=== PATIENT | male | born 1965 | race Caucasian/White ===

== ENCOUNTER 2023-07-17 09:27 | Inpatient (IN) | payer OTHER, SELFPAY ==
--- NOTE | ~2023-07-17 | US_ITS ---
EXAMINATION: US abdomen limited DATE: 07/17/2023 10:41 INDICATION: Abdominal pain TECHNIQUE: Multiple grayscale and Doppler ultrasound images of the abdomen were obtained. COMPARISON: None FINDINGS: The pancreatic head and body are normal in appearance. The pancreatic tail is not visualized. Liver has normal echogenicity and contour, with a smooth surface. No liver lesion identified. No intrahepat ic biliary duct dilation suspected. Portal venous flow was seen in the hepatopetal, normal direction and has normal Doppler waveform. The visualized proximal inferior vena cava is normal. The gallbladd er is filled with hypoechoic material with scattered echogenic foci with ringdown artifact suggesting cholesterol crystals. No gallbladder dilation or wall thickening. No shadowing cholelithiasis. The c ommon bile duct measures 5 mm diameter which is normal. Sonographic Alex sign was reported as posit ahsan by the process planner. IMPRESSION: 1. Normal nondilated gallbladder which is filled with hypoechoic and punctate echogenic material like ly representing sludge with cholesterol crystals. 2. Positive sonographic Alex sign but without evident gallbladder dilation, wall thickening or shad owing cholelithiasis to more specifically suggest acute cholecystitis. There is continued clinical co ncern for acute cholecystitis could consider HIDA scan for further evaluation. Reviewed, dictated and finalized at location A. IMPRESSION: 1. Normal nondilated gallbladder which is filled with hypoechoic and punctate e chogenic material likely representing sludge with cholesterol crystals. 2. Positive sonographic Alex sign but without evident gallbladder dilation, w all thickening or shadowing cholelithiasis to more specifically suggest acute c holecystitis. There is continued clinical concern for acute cholecystitis could consider HIDA scan for further evaluation.
--- NOTE | ~2023-07-17 | CT_ITS ---
Non-contrast CT scan of the Abdomen and Pelvis Clinical indication: Abdominal pain Technique: 2.5 mm axial scans were obtained through the abdomen and pelvis without intravenous or or al contrast. Dose reduction technique was used on this scan by utilizing automated exposure control a nd iterative reconstruction technique. The dose-length product (DLP) was 783.60 mGy-cm. Findings: Images through the lung bases reveal no abnormalities. There is no evidence of renal or ureteral calculi. The kidneys and the ureters are nondilated. The liver, spleen, pancreas, and adrenals appear normal. Probable gallbladder sludge. There is no aor tic aneurysm. There is no evidence of bowel obstruction. Images through the pelvis were performed. There is no evidence of ascites or lymphadenopathy. Urinary bladder unremarkable. No pelvic mass seen. Small bilateral fat-containing hernias are present. Impression: Small bilateral fat-containing inguinal hernias, left larger than right. Probable diffuse gallbladder sludge. Reviewed, dictated and finalized at [facility]. Impression: Small bilateral fat-containing inguinal hernias, left larger than right. Probable diffuse gallbladder sludge.
--- NOTE | ~2023-07-17 | MR_ITS ---
EXAMINATION: MR MRCP wo/w con/w 3D wo ind DATE: 07/18/2023 09:49 INDICATION: Gallbladder sludge. Right upper quadrant abdominal pain. Nausea and vomiting. TECHNIQUE: Magnetic resonance imaging (MRI) of the abdomen was performed without and with 18 mL Multi Norman intravenous contrast. Sequences included coronal T2-weighted FS FSE, coronal T2-weighted FSE, a xial T1-weighted LAVA, coronal FS FIESTA, axial dual-echo T1-weighted SPGR, coronal lava-FLEX, sagitt al T2-weighted FSE, axial T2-weighted FSE, and axial DWI. Thick-slab T2-weighted FSE images were obta ined for magnetic resonance cholangiopancreatography (MRCP). Maximum intensity projection 3-D reconst ructions of the volumetric data were created by the technologist. Postcontrast sequences included cor onal LAVA-flex and time course of axial T1-weighted LAVA. COMPARISON: CT abdomen and pelvis 07/17/2023 FINDINGS: ABDOMEN MRI: There are partially 4 enhancing masses in the liver measuring up to 15 mm. The gallbladd er is distended. There is edema around the gallbladder. The spleen, pancreas, adrenal glands, and kid neys are normal. There are no dilated loops of bowel. There are no pathologically enlarged lymph node s. There is no free intraperitoneal fluid. ABDOMEN MRCP: The common duct measures 4 mm. No choledocholithiasis. IMPRESSION: 1. Distended gallbladder with gallbladder wall thickening and surrounding edema, consistent with acut e cholecystitis. 2. Liver masses measuring up to 15 mm, consistent with metastatic disease. Reviewed, dictated and finalized at location E. IMPRESSION: 1. Distended gallbladder with gallbladder wall thickening and surrounding edema , consistent with acute cholecystitis. 2. Liver masses measuring up to 15 mm, consistent with metastatic disease.
[2023-07-17 09:39] VITALS: BP 161/90; PULSE 70; RESP 16; TEMP 36.4; O2SAT 99
--- NOTE | 2023-07-17 09:41 | PC.NURSE ---
Triage assessment taken form pt c/o upon speaking with this atg java developer. Pt refusing to relate any information to triage nurse. States I don't see why I have to repeat it
--- NOTE | 2023-07-17 09:52 | ECG_ITS ---
SEE SCANNED COPY FOR CONFIRMED REPORT MTDD
--- NOTE | 2023-07-17 09:52 | ED.ABDPAIN ---
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 He states that the pain will come up around 1:00 a.m. this morning, feels like a sharp and burning sensation in the right upper quadrant, associated with significant nausea and multiple episodes of vomiting. He does note that he had similar symptoms in the past, went to an outside hospital where they told him he was having a gallbladder attack and prescribed him with Toradol. He did attempt to take 2 doses of Toradol this morning, the 1st of which was at 3:00 a.m. which he vomited up in the 2nd of which was at 4:00 a.m. which he was able to keep down. Last p.o. intake was around 3:00 a.m. this morning. He denies chest pain or shortness of breath. He does endorse some associated bilateral lower back pain which is nonradiating in nature. Denies any trauma. No history of HTN, only other medication he is on is sertraline. Related Data Home Medications Medication Instructions Recorded Confirmed dicyclomine 10 mg capsule 10 mg PO DAILY 07/17/23 07/17/23 sertraline 100 mg tablet 100 mg POST-TRANSFUSION 07/17/23 07/17/23 Allergies Allergy/AdvReac Type Severity Reaction Status Date / Time Iodinated Contrast Media Allergy Hives Verified 07/17/23 09:28 Review of Systems Review of Systems: All systems reviewed & are unremarkable except as noted in HPI and below PMFSH Social History Social History Smoking status: Never smoker Do You Feel Safe in your Home?: Yes Lack of Transportation: No Lack of Food: Never True Current Housing: I Have Housing Concerned About Future Housing: No Difficulty Paying Gas/Electric Bills: No Difficulty Paying for Meds: No Currently Unemployed: No Education: Decline to Answer Difficulty w/ Childcare or Family Care: No Spiritual care concerns: No Exam Narrative: GENERAL: Well-appearing, well-nourished, and in no acute distress. HEAD: Normocephalic, atraumatic. EYES: PERRLA and EOMI. ENT: Nares clear. Mucous membranes moist. NECK: Supple. CHEST: Clear to auscultation. No respiratory distress. HEART: Regular rate and rhythm. Normal peripheral pulses. ABDOMEN: Soft, Right upper quadrant tenderness without rebound or guarding. EXTREMITIES: Normal range of motion. No edema. SKIN: Warm, dry, no rash. NEURO: No focal deficits. Alert and oriented x3. PSYCH: Normal mood and affect. Course Course Emergency Course: Chart review performed. Here with concern for gallbladder attack. Triage vitals show HTN, otherwise normal. Patient seen evaluated, does appear to be in pain. Fairly complex surgical and medical history most of which was performed at [facility]. Lab work reviewed, CBC grossly normal, electrolytes within normal limits. Elevation of his bilirubin to 2.1, AST 184, ALT 129. We have no prior for comparison in our system. Troponin negative, lipase normal. In addition to ultrasound will add on CT abdomen and pelvis. Patient agreeable to workup the plan. Imaging reviewed, ultrasound shows normal nondilated gallbladder with punctate echogenic crystals with a positive sonographic Alex sign. No associated signs of acute cholecystitis. CT shows probable diffuse gallbladder sludge. Will re-evaluate. Continued pain. Discussed case with Dr. Stapleton who is okay with keeping patient here, will require an MRCP. I did speak with patient's oncology team over at the [facility], they note that they are okay with him staying here at our hospital as they do not have any upcoming procedures or workup planned on their end. Spoke with dylan
[2023-07-17 10:58] LABS: Basophils Percent Auto 0.3 % (0.2-1.2); Eosinophils Percent Auto 0.1 % (0-4.4); Hematocrit 44.4 % (42.0-52.0); Hemoglobin 15.1 g/dL (14.0-18.0); Immature Granulocyte Absolute 0.03 K/mm3 (0.00-0.031); Immature Granulocyte Percent A 0.3 % (0-0.5); Lymphocytes Absolute Auto 0.72 K/mm3 (0.9-3.2); Lymphocytes Percent Auto 7.4 % (18.3-44.2); Mean Corpuscular Hemoglobin 30.3 pg (26-34); Mean Corpuscular Volume 89.2 fl (80-100); Mean Platelet Volume 9.3 fl (7.4-10.4); Monocytes Absolute Auto 0.4 K/mm3 (0.1-0.6); Monocytes Percent Auto 4.5 % (2.6-8.5); Neutrophils Absolute Auto 8.5 K/mm3 (1.3-6.7); Neutrophils Percent Auto 87.4 % (45.5-73.1); Platelet Count Result 222 k/mm3 (150-375); Red Blood Count 4.98 M/mm3 (4.6-6.20); Red Cell Distribution Width 12.9 % (11.5-14.5); White Blood Count 9.7 K/mm3 (4.5-10.0)
[2023-07-17 11:09] LABS: INR 0.9
[2023-07-17 11:10] LABS: Partial Thromboplastin Time 22.3 Seconds (22.3-36.8)
[2023-07-17 11:12] LABS: Lactic Acid Reflex 1.7 mmol/L (0.7-2.0)
[2023-07-17 11:13] LABS: Alanine Aminotransferase 129 U/L (6-50); Albumin Level 4.8 g/dL (3.5-5.1); Alkaline Phosphatase 175 U/L (38-126); Anion Gap 9 mmol/L (4-12); Aspartate Amino Transferase 194 U/L (17-59); Bilirubin,Total 2.1 mg/dL (0.2-1.3); Blood Urea Nitrogen 13 mg/dL (9-20); Calcium 9.6 mg/dL (8.4-10.2); Carbon Dioxide 23 mmol/L (22-30); Chloride 103 mmol/L (98-107); Estimated CRCL calculation 88 ml/min; Estimated Glomerular Filt Rate > 60; Glucose 137 mg/dL (65-110); Lipase 42 U/L (23-300); Sodium 135 mmol/L (137-145)
[2023-07-17 11:14] LABS: Appearance Urine Clear (Clear); Bilirubin Urine Negative (Negative); Blood Urine Negative (Negative); Color Urine Dark Yellow (Yellow); Glucose Urine UA Trace mg/dL (Negative); Ketones Urine 1+ mg/dL (Negative); Leukocyte Esterase Ur Negative LEU/UL (Negative); Nitrate Urine Negative (Negative); Protein Urine Negative (Negative); Specific Grav Ur 1.025 (1.001-1.035); Urobilinogen Urine 0.2 mg/dL (<2.0)
[2023-07-17 11:21] LABS: Add Urine Microscopic? NO
[2023-07-17 11:27] LABS: Troponin I < 0.012 ng/mL (0.000-0.034)
[2023-07-17] MEDS: MORPHINE SULFATE (*CRX) 4 MG/ML INJ IV PUSH ×3 (11:46→16:38)
[2023-07-17] MEDS: ONDANSETRON INJ 4 MG/2 ML VIAL IV PUSH (11:46)
[2023-07-17 14:19] VITALS: BP 176/99; PULSE 60; RESP 18; O2SAT 97
--- NOTE | 2023-07-17 15:28 | PM.CNGS ---
Assessment and Plan Assessment and plan (1) Acute on chronic cholecystitis concurrent with and due to calculus of gallbladder and bile duct: Code(s): K80.66 - Calculus of gallbladder and bile duct with acute and chronic cholecystitis without obstruction Status: Acute Assessment and Plan: was set up for MRCP, serial exams and labs, will need interval cholecystectomy (2) Metastatic carcinoid tumor: Code(s): C7B.00 - Secondary carcinoid tumors, unspecified site Status: Acute Assessment and Plan: stable, reached out to Oncology at [facility] and patient has follow-up appointment in August History of Present Illness Consult details Consult date: 07/17/23 Reason for consult: abdominal pain Requesting physician: Alma Boyle MD Narrative: The patient is a 58-year-old male presenting to the emergency department complaining of severe right upper quadrant, epigastric abdominal pain. Patient reports the pain acutely started overnight and was associated with nausea and emesis. The patient also reports bloating and poor appetite. Patient reports that he has had intermittent symptoms over the last couple of months. The patient reports the episodes seem to be increasing in severity and frequency. The patient ER a previous time and diagnosed with biliary colic. Of note, the patient has known metastatic carcinoid tumor. He follows up with Oncology at [facility]. Review of Systems Review of Systems: All systems reviewed & are unremarkable except as noted in HPI and below [facility] Comments PMH - metastatic carcinoid with mets to liver, lung PSH - ileocecectomy, liver resection SH - denies tobacco, ETOH, IVDA FH - no known biliary dz Meds Home Medications and Allergies Allergies Allergy/AdvReac Type Severity Reaction Status Date / Time Iodinated Contrast Media Allergy Hives Verified 07/17/23 09:28 Vital Signs Vital Signs - 24 hr 07/17/23 09:39 07/17/23 14:19 Temperature 36.4 C Pulse Rate 70 60 Respiratory Rate 16 18 Blood Pressure 161/90 H 176/99 H Pulse Oximetry 99 97 Oxygen Delivery Room Air Exam Const: General: cooperative, alert, awake, Physically active, tired appearing and uncomfortable HENMT: Head: normal to inspection, normocephalic and atraumatic Eyes: General: appearance normal, both eyes and all related structures Neck: Neck: normal visual inspection, full ROM and no lymphadenopathy Resp: Auscultation: clear to auscultation bilaterally Cardio: Rate: regular rate Rhythm: regular rhythm GI: Inspection: normal to inspection and distended GI Palp: Yes abdominal tenderness, Yes Soft to palpation and Yes Tenderness to palpation present (GI) Skin: General skin exam: normal color and no rashes or lesions noted Neuro: General: patient oriented x3 and CN's II-XI intact bilaterally Extrem: General: normal to inspection and full ROM Results Labs 07/17/23 10:48 07/17/23 10:48 Labs: Abnormal lab results 07/17/23 Range/Units 10:48 Neut % (Auto) 87.4 H (45.5-73.1) % Lymph % (Auto) 7.4 L (18.3-44.2) % Lymph # (Auto) 0.72 L (0.9-3.2) K/mm3 Absolute Neuts (auto) 8.5 H (1.3-6.7) K/mm3 Sodium 135 L (137-145) mmol/L Glucose 137 H (65-110) mg/dL Total Bilirubin 2.1 H (0.2-1.3) mg/dL AST 194 H (17-59) U/L ALT 129 H (6-50) U/L Alkaline Phosphatase 175 H (38-126) U/L Urine Glucose (UA) Trace H (Negative) mg/dL Urine Ketones 1+ H (Negative) mg/dL Diabetes panel 07/17/23 Range/Units 10:48 Sodium 135 L (137-145) mmol/L Potassium 4.0 (3.4-5.0) mmol/L Chloride 103 (98-107) mmol/L Carbon Dioxide 23 (22-30) mmol/L BUN 13 (9-20) mg/dL Creatinine 0.70 (0.7-1.3) mg/dL Glucose 137 H (65-110) mg/dL Calcium 9.6 (8.4-10.2) mg/dL AST 194 H (17-59) U/L ALT 129 H (6-50) U/L Alkaline Phosphatase 175 H (38-126) U/L Total Protein 8.0 (6.3-8.2) g/dL Albumin 4.8 (3.5-5.1) g/dL Calc
[2023-07-17 16:41] VITALS: BP 157/88; PULSE 62; RESP 18; O2SAT 98
[2023-07-17 17:10] VITALS: BP 159/95; PULSE 60; RESP 16; TEMP 36.3; O2SAT 95
--- NOTE | 2023-07-17 17:10 | ADMGEN ---
This patient, Axel Stauffer, was admitted to Medical Room 250-01. Patient/family oriented to hospital policies and general routines including ID bracelet, bed and alarms, visiting hours, pain management, procedures, bathroom and other care routines, personal items, smoking policy, room service/diet, and visiting hours. Information on how to activate the Rapid Response Team has been discussed. Patient/Family are encouraged to report perceived risks to care and to ask questions if they do not understand what they are told or what they should do.
[2023-07-17 17:12] VITALS: BMI 32.6
[2023-07-17 21:49] VITALS: BP 161/93; PULSE 69; RESP 12; TEMP 37; O2SAT 95
[2023-07-17] MEDS: SODIUM CHLORIDE 0.45% 1,000 ML 100 ML IV CONT (23:37)
[2023-07-17] MEDS: PIPERACILLIN/TAZ 4.5G/NS 100ML 4.5 GM/100 ML BAG IVPB (23:40)
[2023-07-17] MEDS: MORPHINE SULFATE (*CRX) 2 MG/ML INJ IV PUSH (23:41)
[2023-07-18] MEDS: predniSONE 40 MG, predniSONE 10 MG 50 MG PO (01:24)
[2023-07-18 05:14] VITALS: BP 135/93; PULSE 83; RESP 12; TEMP 36.2; O2SAT 96
[2023-07-18 05:57] LABS: Basophils Percent Auto 0.2 % (0.2-1.2); Eosinophils Percent Auto 0.1 % (0-4.4); Hematocrit 42.1 % (42.0-52.0); Hemoglobin 14.2 g/dL (14.0-18.0); Immature Granulocyte Absolute 0.03 K/mm3 (0.00-0.031); Immature Granulocyte Percent A 0.4 % (0-0.5); Lymphocytes Absolute Auto 0.87 K/mm3 (0.9-3.2); Lymphocytes Percent Auto 10.5 % (18.3-44.2); Mean Corpuscular HGB Conc 33.7 g/dl (32-36); Mean Corpuscular Hemoglobin 30.3 pg (26-34); Mean Platelet Volume 9.6 fl (7.4-10.4); Monocytes Absolute Auto 0.8 K/mm3 (0.1-0.6); Monocytes Percent Auto 9.7 % (2.6-8.5); Neutrophils Absolute Auto 6.6 K/mm3 (1.3-6.7); Neutrophils Percent Auto 79.1 % (45.5-73.1); Platelet Count Result 212 k/mm3 (150-375); Red Blood Count 4.68 M/mm3 (4.6-6.20); Red Cell Distribution Width 13.2 % (11.5-14.5); White Blood Count 8.3 K/mm3 (4.5-10.0)
[2023-07-18 06:06] LABS: Alanine Aminotransferase 419 U/L (6-50); Albumin Level 4.3 g/dL (3.5-5.1); Alkaline Phosphatase 200 U/L (38-126); Anion Gap 7 mmol/L (4-12); Aspartate Amino Transferase 533 U/L (17-59); Bilirubin,Total 6.1 mg/dL (0.2-1.3); Blood Urea Nitrogen 9 mg/dL (9-20); Calcium 8.9 mg/dL (8.4-10.2); Carbon Dioxide 25 mmol/L (22-30); Chloride 104 mmol/L (98-107); Estimated CRCL calculation 92 ml/min; Estimated Glomerular Filt Rate > 60; Glucose 138 mg/dL (65-110); Magnesium 2.4 mg/dL (1.6-2.3); Potassium 3.8 mmol/L (3.4-5.0); Sodium 136 mmol/L (137-145)
[2023-07-18] MEDS: PIPERACILLIN/TAZ 4.5G/NS 100ML 4.5 GM/100 ML BAG IVPB ×4 (06:37→23:41)
--- NOTE | 2023-07-18 12:19 | PM.PNGS ---
Progress Note: A&P Assessment and Plan (1) Acute on chronic cholecystitis concurrent with and due to calculus of gallbladder and bile duct: Code(s): K80.66 - Calculus of gallbladder and bile duct with acute and chronic cholecystitis without obstruction Status: Acute Assessment and Plan: Total bilirubin up to 6.1 today. MRCP ordered and pending. GI consulted. Will await MRCP results, may need ERCP, likely will need interval cholecystectomy. (2) Metastatic carcinoid tumor: Code(s): C7B.00 - Secondary carcinoid tumors, unspecified site Status: Acute Assessment and Plan: Follows with Oncology at [facility] with an appt in August Plan I have discussed the patient's case and plan of care with Dr. Stapleton. Subjective Subjective Date/Time Seen: 07/18/23 11:19 Patient reports: no new complaints, feels better, pain is less, voiding w/o difficulty, flatus and afebrile Interval history: Chart reviewed. Patient seen today and reports feeling better. His abdominal pain has improved. Still very mild RUQ pain, but much improved since admission. No nausea or vomiting. He reports noticing jaundice today. His total bilirubin went up to 6.1 on today's labs. He had an MRCP done this morning, but report is pending. Exam Const: General: comfortable and no acute distress Orientation/consciousness: patient oriented x3 Eyes: Conjunctivae: conjunctival abnormality (scleral icteric) GI: Inspection: non-distended GI Palp: Yes Soft to palpation, Yes Tenderness to palpation present (GI) (mild RUQ tenderness), No Guarding due to palpation present (GI) and No Rebound tenderness present Auscultation: normal bowel sounds Skin: General skin exam: jaundice Objective Data Vital Signs Vital Signs: Vital Signs - 24 hr 07/17/23 14:19 07/17/23 16:41 07/17/23 17:10 Temperature 97.4 F L Pulse Rate 60 62 60 Respiratory Rate 18 18 16 Blood Pressure 176/99 H 157/88 H 159/95 H Pulse Oximetry 97 98 95 Oxygen Delivery 07/17/23 17:24 07/17/23 21:49 07/18/23 05:14 Temperature 98.6 F 97.1 F L Pulse Rate 69 83 Respiratory Rate 12 12 Blood Pressure 161/93 H 135/93 H Pulse Oximetry 95 96 Oxygen Delivery Room Air Intake/Output Intake/Output: Intake & Output 07/15/23 07/16/23 07/17/23 07/18/23 23:59 23:59 23:59 23:59 Intake Total 100 Output Total 700 Balance -600 Meds/Results Medications: Active Medications Generic Name Dose Route Start Last Admin Trade Name Freq PRN Reason Stop Dose Admin Diphenhydramine HCl 50 mg 07/18/23 13:00 07/18/23 08:03 Diphenhydramine Hcl Inj 50 Mg/Ml Vial IV PUSH 07/18/23 13:01 Not Given ONCE ONE Sodium Chloride 1,000 mls @ 100 mls/hr 07/17/23 23:05 07/17/23 23:37 Sodium Chloride 0.45% IV CONT 100 mls/hr .Q10H GUILLE Administration Piperacillin Sod/Tazobactam Sod 4.5 gm in 100 mls @ 200 mls/hr 07/18/23 00:00 07/18/23 06:37 Zosyn 4.5 Gm/Ns 100 Ml IVPB 200 mls/hr Q6H GUILLE Administration Morphine Sulfate 2 mg 07/17/23 23:01 07/17/23 23:41 Morphine Sulfate (*Crx) 2 Mg/Ml Inj IV PUSH 2 mg Q4H PRN Administration Pain Rated 7-10 Naloxone HCl 0.1 mg 07/17/23 23:01 Naloxone Hcl 0.4 Mg/Ml Vial IV PUSH Q2M PRN Opiate Reversal Ondansetron HCl 4 mg 07/17/23 23:01 Ondansetron Inj 4 Mg/2 Ml Vial IV PUSH Q6H PRN Nausea And Vomiting Prednisone 40 mg/ Prednisone 50 mg 07/18/23 01:00 07/18/23 11:30 10 mg PO 07/18/23 13:01 Not Given Q6H GUILLE Radiology Results: ITS Impressions Abdomen Ultrasound 07/17/23 11:36 IMPRESSION: 1. Normal nondilated gallbladder which is filled with hypoechoic and punctate echogenic material likely representing sludge with cholesterol crystals. 2. Positive sonographic Alex sign but without evident gallbladder dilation, wall thickening or shadowing cholelithiasis to more specifically suggest acute cholecystitis. There is continued clinical concern for ac
[2023-07-18 14:00] VITALS: BP 149/98; PULSE 70; RESP 14; TEMP 36.4; O2SAT 97
--- NOTE | 2023-07-18 16:01 | PCCCNOTE ---
On 07/18/23, the student, [Makenzie Wilkerson], provided care and completed [facility] documentation on this patient. I have reviewed the student's documentation and agree with the findings.
--- NOTE | 2023-07-18 17:36 | WPDGICN ---
Assessment and Plan Assessment and plan (1) Acute on chronic cholecystitis concurrent with and due to calculus of gallbladder and bile duct: Code(s): K80.66 - Calculus of gallbladder and bile duct with acute and chronic cholecystitis without obstruction Status: Acute Assessment and Plan: better with abx MRCP reviewed, no need of ERCP, wonder if stone passed timing of cholecystectomy by surgery team (2) Metastatic carcinoid tumor: Code(s): C7B.00 - Secondary carcinoid tumors, unspecified site Status: Acute Assessment and Plan: known liver lesions, he is seeing oncology at [facility] (3) Biliary sludge: Code(s): K83.8 - Other specified diseases of biliary tract Status: Acute (4) Elevated liver enzymes: Code(s): R74.8 - Abnormal levels of other serum enzymes Status: Acute Assessment and Plan: monitor cholecystitis also underlying liver mets (5) RUQ pain: Code(s): R10.11 - Right upper quadrant pain Status: Acute Assessment and Plan: improved (6) Nausea and vomiting in adult: Code(s): R11.2 - Nausea with vomiting, unspecified Status: Acute Assessment and Plan: resolved GI Consult Note Consult date/time: 07/18/23 17:36 Reason for consult: cholecystitis, elevated liver enzymes HPI: Axel Stauffer is a 58 year old male with history of neuroendocrine tumor in ileum with mets to liver, his oncologist is at [facility] and treated previously with partial liver resection and currently on octreotide monthly injection. He is here with severe right upper quadrant was associated with nausea and emesis, about 1.5 year ago had similar episode, diagnosed with biliary disease and treated medically. Blood work here with elevated liver enzymes, bili [address] scan showed cholecystitis that was confirmed by MRCP, no choledocholithiasis with normal bile duct, also known liver mets. Started on abx and pain is significantly better. Review of Systems Constitutional: Constitutional: Denies weakness Eyes: Eyes: Denies blurry vision ENT: Reports Normal hearing present, Denies headache(s) and Denies neck pain Cardiovascular: Cardiovascular: Denies chest pain and Denies dyspnea Respiratory: Respiratory: Denies dyspnea Gastrointestinal: Gastrointestinal: Reports no additional gastrointestinal complaints Genitourinary: Genitourinary: Denies dysuria Musculoskeletal: Musculoskeletal: Denies neck pain Integumentary/Breasts: Skin/Breast: Denies dry skin Neurologic: Reports Normal hearing present, Denies headache(s) and Denies weakness Psychiatric: Psychiatric: Denies anxiety Endocrine: Endocrine: Denies change in body appearance Hematologic/Lymphatic: Hematologic/Lymphatic: Denies easy bleeding Allergic/Immunologic: Allergic/Immunologic: Denies urticaria PMFSH Past Medical History Medical History (Updated 07/18/23 @ 17:41 by Sumit Johns MD) Elevated liver enzymes Nausea and vomiting in adult RUQ pain Social History Social History Smoking status: Never smoker Do You Feel Safe in your Home?: Yes Lack of Transportation: No Lack of Food: Never True Current Housing: I Have Housing Concerned About Future Housing: No Difficulty Paying Gas/Electric Bills: No Difficulty Paying for Meds: No Currently Unemployed: No Education: Decline to Answer Difficulty w/ Childcare or Family Care: No Spiritual care concerns: No Meds Home Medications and Allergies Home Medications Medication Instructions Recorded Confirmed Type dicyclomine 10 mg capsule 10 mg PO DAILY 07/17/23 07/17/23 History sertraline 100 mg tablet 100 mg POST-TRANSFUSION 07/17/23 07/17/23 History Allergies Allergy/AdvReac Type Severity Reaction Status Date / Time Iodinated Contrast Media Allergy Hives Verified 07/17/23 09:28 Vital Signs Vital Signs - 24 hr 07/17/23 21:49 07/18/23 05:14 07/18/23 14:
--- NOTE | 2023-07-18 18:32 | PM.IMHP ---
H&P: HPI History of Present Illness Date/Time: 07/18/23 18:32 Chief Complaint: Gallbladder attack Narrative: Mr. 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 Presents with what he calls a gallbladder attack since he woke up at 1:00 a.m. in the morning prior to admission with a sharp and burning sensation in his right upper quadrant and episodes of vomiting and nausea. He reports he had events like this years ago and was treated conservatively. Upon presentation to [place] [facility] a CT abdomen pelvis without contrast demonstrated probable diffuse gallbladder sludge and a right upper quadrant ultrasound was positive for Alex sign. Again Alex sign positive on physical examination. He also presented with elevated bilirubin at 2.1 AST 194 ALT 129 alkaline phosphatase 175 a negative troponin. He was admitted for MRCP and further evaluation by GI and General security services specialist. Review of Systems Review of Systems: All systems reviewed & are unremarkable except as noted in HPI and below (Subjective) [facility] Past Medical History Medical History (Updated 07/18/23 @ 17:41 by Sumit Johns MD) Elevated liver enzymes Nausea and vomiting in adult RUQ pain Social History Social History Smoking status: Never smoker Do You Feel Safe in your Home?: Yes Lack of Transportation: No Lack of Food: Never True Current Housing: I Have Housing Concerned About Future Housing: No Difficulty Paying Gas/Electric Bills: No Difficulty Paying for Meds: No Currently Unemployed: No Education: Decline to Answer Difficulty w/ Childcare or Family Care: No Spiritual care concerns: No Meds Home Medications and Allergies Home Medications Medication Instructions Recorded Confirmed Type dicyclomine 10 mg capsule 10 mg PO DAILY 07/17/23 07/17/23 History sertraline 100 mg tablet 100 mg POST-TRANSFUSION 07/17/23 07/17/23 History Allergies Allergy/AdvReac Type Severity Reaction Status Date / Time Iodinated Contrast Media Allergy Hives Verified 07/17/23 09:28 Vital Signs Vital Signs - 24 hr 07/17/23 21:49 07/18/23 05:14 07/18/23 14:00 Temperature 98.6 F 97.1 F L 97.6 F Pulse Rate 69 83 70 Respiratory Rate 12 12 14 Blood Pressure 161/93 H 135/93 H 149/98 H Pulse Oximetry 95 96 97 Exam Const: General: comfortable and no acute distress Eyes: Pupils: Equal, round and reactive pupils present Neck: Neck: supple Resp: Effort & Inspection: normal respiratory effort Auscultation: clear to auscultation bilaterally Cardio: Rate: regular rate Rhythm: regular rhythm GI: Other: Soft, no guarding. Mild distention. Hypertympanic. Positive Alex sign. : General: Yes bladder normal to palpation Extrem: General: no edema H&P: Results Labs Labs: Short CBC 07/18/23 Range/Units 05:39 WBC 8.3 (4.5-10.0) K/mm3 Hgb 14.2 (14.0-18.0) g/dL Hct 42.1 (42.0-52.0) % Plt Count 212 (150-375) k/mm3 BMP 07/18/23 05:39 Sodium 136 L Potassium 3.8 Chloride 104 Carbon Dioxide 25 BUN 9 Creatinine 0.80 Glucose 138 H Calcium 8.9 Liver Function 07/18/23 Range/Units 05:39 Total Bilirubin 6.1 H (0.2-1.3) mg/dL AST 533 H (17-59) U/L ALT 419 H (6-50) U/L Alkaline Phosphatase 200 H (38-126) U/L Albumin 4.3 (3.5-5.1) g/dL Assessment and Plan Assessment and plan (1) Nausea and vomiting in adult: Code(s): R11.2 - Nausea with vomiting, unspecified Status: Acute (2) RUQ pain: Code(s): R10.11 - Right upper quadrant pain Status: Acute (3) Elevated liver enzymes: Code(s): R74.8 - Abnormal levels of other serum enzymes Status: Acute (4) Biliary colic: Code(s): K80.50 - Calculus of bile duct without cholangitis or cholecys
[2023-07-18 22:00] VITALS: BP 152/88; PULSE 78; RESP 19; TEMP 37.5; O2SAT 97
[2023-07-18] MEDS: SODIUM CHLORIDE 0.45% 1,000 ML 100 ML IV CONT (23:42)
[2023-07-18] MEDS: MORPHINE SULFATE (*CRX) 2 MG/ML INJ IV PUSH (23:44)
[2023-07-19] VITALS (12 sets, daily range): BP systolic 142–160; BP diastolic 83–100; PULSE 61–99; RESP 14–20; TEMP 36.8–37.2; O2SAT 93–100
[2023-07-19] MEDS: PIPERACILLIN/TAZ 4.5G/NS 100ML 4.5 GM/100 ML BAG IVPB ×3 (05:35→17:52)
[2023-07-19 05:40] LABS: Basophils Percent Auto 0.3 % (0.2-1.2); Eosinophils Percent Auto 0.1 % (0-4.4); Hematocrit 40.8 % (42.0-52.0); Hemoglobin 13.8 g/dL (14.0-18.0); Immature Granulocyte Absolute 0.05 K/mm3 (0.00-0.031); Immature Granulocyte Percent A 0.4 % (0-0.5); Lymphocytes Absolute Auto 1.23 K/mm3 (0.9-3.2); Mean Corpuscular HGB Conc 33.8 g/dl (32-36); Mean Corpuscular Hemoglobin 30.7 pg (26-34); Mean Corpuscular Volume 90.7 fl (80-100); Mean Platelet Volume 9.7 fl (7.4-10.4); Monocytes Absolute Auto 1.1 K/mm3 (0.1-0.6); Monocytes Percent Auto 9.4 % (2.6-8.5); Neutrophils Absolute Auto 8.8 K/mm3 (1.3-6.7); Neutrophils Percent Auto 78.8 % (45.5-73.1); Platelet Count Result 203 k/mm3 (150-375); Red Cell Distribution Width 12.9 % (11.5-14.5); White Blood Count 11.2 K/mm3 (4.5-10.0)
[2023-07-19 05:59] LABS: Alanine Aminotransferase 373 U/L (6-50); Alkaline Phosphatase 224 U/L (38-126); Anion Gap 6 mmol/L (4-12); Aspartate Amino Transferase 224 U/L (17-59); Blood Urea Nitrogen 11 mg/dL (9-20); Calcium 8.8 mg/dL (8.4-10.2); Carbon Dioxide 25 mmol/L (22-30); Chloride 106 mmol/L (98-107); Estimated CRCL calculation 82 ml/min; Estimated Glomerular Filt Rate > 60; Glucose 134 mg/dL (65-110); Magnesium 2.4 mg/dL (1.6-2.3); Potassium 3.8 mmol/L (3.4-5.0); Sodium 137 mmol/L (137-145)
--- NOTE | 2023-07-19 07:57 | PM.IMPN ---
Progress Note: A&P Assessment and Plan (1) Nausea and vomiting in adult: Code(s): R11.2 - Nausea with vomiting, unspecified Status: Acute (2) RUQ pain: Code(s): R10.11 - Right upper quadrant pain Status: Acute (3) Elevated liver enzymes: Code(s): R74.8 - Abnormal levels of other serum enzymes Status: Acute (4) Biliary colic: Code(s): K80.50 - Calculus of bile duct without cholangitis or cholecystitis without obstruction Status: Acute (5) Biliary sludge: Code(s): K83.8 - Other specified diseases of biliary tract Status: Acute (6) Metastatic carcinoid tumor: Code(s): C7B.00 - Secondary carcinoid tumors, unspecified site Status: Acute (7) Acute on chronic cholecystitis concurrent with and due to calculus of gallbladder and bile duct: Code(s): K80.66 - Calculus of gallbladder and bile duct with acute and chronic cholecystitis without obstruction Status: Acute Plan Mr. 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 Presents with what he calls a gallbladder attack since he woke up at 1:00 a.m. in the morning prior to admission with a sharp and burning sensation in his right upper quadrant and episodes of vomiting and nausea. He reports he had events like this years ago and was treated conservatively. Upon presentation to [place] ER a CT abdomen pelvis without contrast demonstrated probable diffuse gallbladder sludge and a right upper quadrant ultrasound was positive for Alex sign. Again Alex sign positive on physical examination. He also presented with elevated bilirubin at 2.1 AST 194 ALT 129 alkaline phosphatase 175 a negative troponin. He was admitted for MRCP and further evaluation by GI and General art specialist. Admitted on 07/16 While his bilirubin has elevated to 6.1 his pain has been very well controlled and on 07/17 he no longer requires pain medications and does not have nausea or vomiting. An MRCP demonstrating distended gallbladder with gallbladder wall thickening consistent with acute cholecystitis and liver masses measuring up to 15 mm consistent with metastatic disease. He has been evaluated by GI specialists and ERCP is not recommended. Timing of cholecystectomy deferred to General surgery. 07/18 ? Acute cholecystitis CT scan showed cholecystitis that was confirmed by MRCP, no choledocholithiasis with normal bile duct, also known liver mets. c/w abx , no significant abdomen pain elevated liver enzymes liver enzymes improving, patient may pass stone MRCP suggest liver masses Liver masses, measuring up to 15 mm, consistent with metastatic disease. elevated liver enzymes is also likely related to the liver cancer FEN: Saline lock IV, regular diet. GI prophylaxis: Not indicated DVT prophylaxis: SCDs only for now Lines: Peripheral IV Code Status: Full code Dispo: Stable. Subjective Date/time seen: 07/19/23 07:57 Interval history: patient has low-grade fever 99.5 over the night, blood pressure stable, no O2 desaturation, mild leukocytosis 11,200, total bilirubin and liver enzymes persist, patient denies abdomen pain, nausea vomiting diarrhea also denies chest pain shortness of breath Exam Narrative: GENERAL: Pleasant, in no acute distress. Well-nourished. - EYES: EOMI. Anicteric. - HENT: Moist mucous membranes. - LUNGS: Clear to auscultation bilaterally, no wheezing, rhonchi, or rales. - CARDIOVASCULAR: Regular rate and rhythm. No murmur. No JVD. - ABDOMEN: Soft, non-tender and non-distended. No palpable masses. - EXTREMITIES: No edema. Peripheral pulses 2+. Non-tender. - NEUROLOGIC: No focal neurological deficits. CN II-XII grossly intact. - PSYCHIATRIC: Awake, Alert and oriented x 3. Appropriate mood and affect. - SKIN: No rashes or
[2023-07-19] MEDS: MORPHINE SULFATE (*CRX) 2 MG/ML INJ IV PUSH ×2 (08:02→12:10)
[2023-07-19] MEDS: ONDANSETRON INJ 4 MG/2 ML VIAL IV PUSH (08:03)
[2023-07-19] MEDS: SODIUM CHLORIDE 0.45% 1,000 ML 100 ML IV CONT ×2 (12:09→12:14)
--- NOTE | 2023-07-19 13:15 | WPDHPUPDATE1 ---
History and Physical Update Update Date/Time: 07/19/23 13:15 History and Physical has been reviewed, including an updated exam of the patient. There are NO changes in the patient's condition. Risks, benefits, and alternatives have been discussed and questions answered. Patient agrees to proceed with procedure. setup for interval cholecystectomy
--- NOTE | 2023-07-19 14:25 | WPDANESEPPF ---
Anes - Initial Pre Proc Eval Procedure: Operation Date: 07/19/23 14:30 Proposed Procedures p Laparoscopic Cholecystectomy - Cheryl Stapleton MD Date/Time: 07/19/23 14:25 Surgeon: Bessy Velasco MD Pre Op Diagnosis: Biliary Colic/Biliary Sludge Patient Data Age: 58 Gender: M Height: 1.68 m Weight: 91.8 kg Last Vital Signs Temp 36.8 C 07/19/23 06:00 Pulse 80 07/19/23 07:44 Resp 20 07/19/23 06:00 BP 155/98 H 07/19/23 06:00 Pulse Ox 95 07/19/23 07:44 O2 Del Method Room Air 07/19/23 08:00 Allergies Allergy/AdvReac Type Severity Reaction Status Date / Time Iodinated Contrast Media Allergy Hives Verified 07/17/23 09:28 Home Medications Medication Instructions Recorded Confirmed Type dicyclomine 10 mg capsule 10 mg PO DAILY 07/17/23 07/17/23 History sertraline 100 mg tablet 100 mg POST-TRANSFUSION 07/17/23 07/17/23 History Laboratory Tests 07/19/23 05:31 WBC 11.2 H K/mm3 (4.5-10.0) RBC 4.50 L M/mm3 (4.6-6.20) Hgb 13.8 L g/dL (14.0-18.0) Hct 40.8 L % (42.0-52.0) MCV 90.7 fl (80-100) MCH 30.7 pg (26-34) MCHC 33.8 g/dl (32-36) RDW 12.9 % (11.5-14.5) Plt Count 203 k/mm3 (150-375) MPV 9.7 fl (7.4-10.4) Immature Gran % (Auto) 0.4 % (0-0.5) Neut % (Auto) 78.8 H % (45.5-73.1) Lymph % (Auto) 11.0 L % (18.3-44.2) Lewis % (Auto) 9.4 H % (2.6-8.5) Eos % (Auto) 0.1 % (0-4.4) Baso % (Auto) 0.3 % (0.2-1.2) Lymph # (Auto) 1.23 K/mm3 (0.9-3.2) Lewis # (Auto) 1.1 H K/mm3 (0.1-0.6) Eos # (Auto) 0.0 K/mm3 (0-0.3) Baso # (Auto) 0.0 K/mm3 (0.0-0.1) Abs Immat Gran (auto) 0.05 H K/mm3 (0.00-0.031) Absolute Neuts (auto) 8.8 H K/mm3 (1.3-6.7) Absolute Nucleated RBC 0.000 K/mm3 (0.0-0.012) Nucleated RBC % 0.0 % (0.0-0.2) Sodium 137 mmol/L (137-145) Potassium 3.8 mmol/L (3.4-5.0) Chloride 106 mmol/L (98-107) Carbon Dioxide 25 mmol/L (22-30) Anion Gap 6 mmol/L (4-12) BUN 11 mg/dL (9-20) Creatinine 0.90 mg/dL (0.7-1.3) Estim Creat Clear Calc 82 ml/min Estimated GFR > 60 (59 - ) Glucose 134 H mg/dL (65-110) Calcium 8.8 mg/dL (8.4-10.2) Magnesium 2.4 H mg/dL (1.6-2.3) Total Bilirubin 3.0 H mg/dL (0.2-1.3) AST 224 H U/L (17-59) ALT 373 H U/L (6-50) Alkaline Phosphatase 224 H U/L (38-126) Total Protein 7.0 g/dL (6.3-8.2) Albumin 4.0 g/dL (3.5-5.1) Patient hx anesthesia problems: none Family hx anesthesia problems: none Results Review: All pre-operative results and documents have been reviewed as part of the pre-operative evaluation. [facility] Past Medical History Medical History Elevated liver enzymes Nausea and vomiting in adult RUQ pain Social History Social History Smoking status: Never smoker Do You Feel Safe in your Home?: Yes Lack of Transportation: No Lack of Food: Never True Current Housing: I Have Housing Concerned About Future Housing: No Difficulty Paying Gas/Electric Bills: No Difficulty Paying for Meds: No Currently Unemployed: No Education: Decline to Answer Difficulty w/ Childcare or Family Care: No Spiritual care concerns: No Anes - Eval Final PreProcedure Day of Procedure 07/19/23 14:25 Patient weight: obese Heart: regular rate and rhythm Lungs: clear to auscultation Airway: Mallampati scale class II Neurological: alert and oriented Last oral intake: >/= 8 hours ASA classification: III Emergent: no Anesthetic plan: proceed Anesthesia type and monitoring: general ETT and standard monitoring Results Review: All pre-operative results and documents have been reviewed as part of the pre-operative evaluation. Informed Consent: The patient's anesthetic plan and its attendant risks
[2023-07-19] MEDS: LACTATED RINGERS 1,000 ML 30 ML IV CONT ×2 (14:31→17:01)
[2023-07-19] MEDS: HYDROmorphone HCL INJ (*CRX) 1 MG/ML SYR IV PUSH (14:35)
--- NOTE | 2023-07-19 15:07 | WPDGIPROGNO ---
Progress Note: A&P Assessment and Plan (1) Acute on chronic cholecystitis concurrent with and due to calculus of gallbladder and bile duct: Code(s): K80.66 - Calculus of gallbladder and bile duct with acute and chronic cholecystitis without obstruction Status: Acute Assessment and Plan: no choledocholithiasis and bili down to 2 clinically better cholecystectomy today no need of ercp (2) Metastatic carcinoid tumor: Code(s): C7B.00 - Secondary carcinoid tumors, unspecified site Status: Acute Assessment and Plan: he is seeing oncology at [facility] (3) Biliary sludge: Code(s): K83.8 - Other specified diseases of biliary tract Status: Acute (4) Elevated liver enzymes: Code(s): R74.8 - Abnormal levels of other serum enzymes Status: Acute Assessment and Plan: improved (5) RUQ pain: Code(s): R10.11 - Right upper quadrant pain Status: Acute Subjective Date/time seen: 07/19/23 15:07 Interval history: pain almost gone, he is going to OR for cholecystectomy Review of Systems Review of Systems: All systems reviewed & are unremarkable except as noted in HPI and below Exam Const: General: cooperative, alert, awake and Physically active HENMT: Head: normal to inspection, normocephalic and atraumatic Eyes: General: appearance normal, both eyes and all related structures Neck: Neck: normal visual inspection and full ROM Resp: Auscultation: clear to auscultation bilaterally Cardio: Rate: regular rate Rhythm: regular rhythm GI: Inspection: normal to inspection GI Palp: Yes Soft to palpation, Yes Tenderness to palpation present (GI) (mild ttp in ruq, improved since admission per patient) and No Guarding due to palpation present (GI) Auscultation: normal bowel sounds Skin: General skin exam: normal color and no rashes or lesions noted Neuro: General: patient oriented x3 and CN's II-XI intact bilaterally Extrem: General: normal to inspection and full ROM Objective Data Vital Signs Vital Signs: Vital Signs - 24 hr 07/18/23 20:00 07/18/23 22:00 07/19/23 06:00 Temperature 99.5 F 98.2 F Pulse Rate 78 64 Respiratory Rate 19 20 Blood Pressure 152/88 H 155/98 H Pulse Oximetry 97 99 Oxygen Delivery Room Air 07/19/23 07:44 07/19/23 08:00 07/19/23 14:25 Temperature 98.9 F Pulse Rate 80 61 Respiratory Rate 16 Blood Pressure 153/89 H Pulse Oximetry 95 96 Oxygen Delivery Room Air Room Air Room Air Intake/Output Intake/Output: Intake & Output 07/16/23 07/17/23 07/18/23 07/19/23 23:59 23:59 23:59 23:59 Intake Total 2430 1408.3 Output Total 700 Balance 1730 1408.3 Meds/Results Medications: Active Medications Generic Name Dose Route Start Last Admin Trade Name Freq PRN Reason Stop Dose Admin Hydromorphone HCl 0.5 mg 07/19/23 14:25 Hydromorphone Hcl Inj (*Crx) 1 Mg/Ml Syr IV PUSH Q5M PRN Pain Sodium Chloride 1,000 mls @ 100 mls/hr 07/17/23 23:05 07/19/23 12:14 Sodium Chloride 0.45% IV CONT 100 mls/hr .Q10H GUILLE Administration Piperacillin Sod/Tazobactam Sod 4.5 gm in 100 mls @ 200 mls/hr 07/18/23 00:00 07/19/23 12:09 Zosyn 4.5 Gm/Ns 100 Ml IVPB 200 mls/hr Q6H GUILLE Administration Lactated Ringer's 1,000 mls @ 30 mls/hr 07/19/23 14:25 07/19/23 14:31 Lr - Lactated Ringers Iv IV CONT 30 mls/hr .Q24H GUILLE Administration Lactated Ringer's 1,000 mls @ 30 mls/hr 07/19/23 14:25 Lr - Lactated Ringers Iv IV CONT .Q24H GUILLE Morphine Sulfate 2 mg 07/19/23 09:37 07/19/23 12:10 Morphine Sulfate (*Crx) 2 Mg/Ml Inj IV PUSH 2 mg Q2H PRN Administration Pain Rated 7-10 Naloxone HCl 0.1 mg 07/17/23 23:01 Naloxone Hcl 0.4 Mg/Ml Vial IV PUSH Q2M PRN Opiate Reversal Ondansetron HCl 4 mg 07/17/23 23:01 07/19/23 08:03 Ondansetron Inj 4 Mg/2 Ml Vial IV PUSH 4 mg Q6H PRN Administration Nausea And Vomiting Ond
[2023-07-19] MEDS: BUPIVACAINE/EPINEPHRINE 0.5% 30 ML VIAL INFILTRATE (15:55)
--- NOTE | 2023-07-19 16:58 | W.PM.PROC2 ---
Procedure Note - Detailed Date of Procedure 07/19/23 Pre-op Diagnosis Acute cholecystitis Post-op Diagnosis Same Procedure Performed laparoscopic cholecystectomy, extensive lysis of adhesions of approximately 45 minutes Surgeon Cheryl Stapleton MD Anesthesia General and Local Indications 58-year-old male presenting to the emergency department with acute cholecystitis. Patient admitted to the surgical service and started on IV antibiotics. The patient was noted to have possible choledocholithiasis with elevated LFTs, however, MRCP was subsequently negative. Patient with a known history metastatic carcinoid status post ileocecectomy and partial hepatectomy. Findings Extensive adhesions in the upper abdomen requiring tedious lysis of adhesions, gallbladder was noted to be acutely inflamed and distended Description of Procedure The the patient was taken to the operating room placed in the supine position. Adequate induction of general anesthesia, the patient was prepped and draped in the normal sterile fashion. A time-out was then done to verify the patient's identity, as well as the procedure being performed. I began by making a 5 mm incision in the infraumbilical region. A Veress needle was then placed in the peritoneal cavity and CO2 gas was insufflated. After adequate pneumoperitoneum was achieved, the Veress needle was removed and a 5 mm Optiview trocar was placed under direct visualization into the abdominal cavity. Once confirmed in proper position, the laparoscopic was placed through this trocar. There was noted to be extensive upper abdominal adhesions, including multiple loops of small intestine and transverse colon. The liver was unable to be visualized at this point. Given these findings, I placed 2 5 mm ports in the left mid and right mid abdomen under direct visualization. I began a very tedious lysis of adhesions using both blunt and sharp dissection. After 45 minutes, these adhesions taken down and I was able to visualize the liver. The liver was noted to be adhesed to the diaphragm. I then placed a 12 mm subxiphoid port under direct visualization. There was noted to be an inflammatory mass in the right upper quadrant. Using very careful dissection I was able to take down the omental adhesion and identify the gallbladder. The gallbladder was noted to be severely inflamed and distended. The gallbladder itself was adhesed to the right upper lateral sidewall. Again using very careful dissection, was able to free the gallbladder from its adhesions. I then was able to place a grasper at the infundibulum and retract laterally. At this point, I was able to clearly identify the elements of the triangle of Calot. I then was able to identify the cystic duct in its entirety from its proximal insertion into the gallbladder to its distal junction with the common hepatic common bile duct junction. I then further skeletonized the proximal cystic duct. The duct was then clipped and transected. Next the cystic artery were further skeletonized, clipped, and transected. I then began the very tedious task of taking down the peritoneal attachments of the gallbladder to the liver. There was quite a bit of inflammation in the posterior wall making dissection quite difficult. Once the gallbladder was completely detached, an Endo pouch was placed through the 12 mm subxiphoid port mm port site. The gallbladder specimen was placed into the endo-pouch and removed through the 12 mm port site. It will now be sent to pathology for further review. Then copiously irrigated the right upper quadrant. The liver bed was noted to be hemostatic and the clips were noted to be in good position on both the duct and the artery. The laparoscopic was then placed through the subxiphoid to check our port of entry. No other pathology was noted in the lower abdomen. I then placed a Jhonny cone through the 12 mm port site. I then used a 0 Vicryl suture under direct visualizat
[2023-07-19] MEDS: HYDROcodone/acetaminophen (*CRX) 5-325 MG TABLET 1 TAB PO (18:37)
[2023-07-20 00:42] VITALS: BP 128/79; PULSE 66; RESP 18; TEMP 36.8; O2SAT 94
[2023-07-20 05:00] VITALS: BP 149/93; PULSE 73; RESP 20; TEMP 36.6; O2SAT 97
--- NOTE | 2023-07-20 08:16 | PM.IMPN ---
Progress Note: A&P Assessment and Plan (1) Nausea and vomiting in adult: Code(s): R11.2 - Nausea with vomiting, unspecified Status: Acute (2) RUQ pain: Code(s): R10.11 - Right upper quadrant pain Status: Acute (3) Elevated liver enzymes: Code(s): R74.8 - Abnormal levels of other serum enzymes Status: Acute (4) Biliary colic: Code(s): K80.50 - Calculus of bile duct without cholangitis or cholecystitis without obstruction Status: Acute (5) Biliary sludge: Code(s): K83.8 - Other specified diseases of biliary tract Status: Acute (6) Metastatic carcinoid tumor: Code(s): C7B.00 - Secondary carcinoid tumors, unspecified site Status: Acute (7) Acute on chronic cholecystitis concurrent with and due to calculus of gallbladder and bile duct: Code(s): K80.66 - Calculus of gallbladder and bile duct with acute and chronic cholecystitis without obstruction Status: Acute Plan Mr. 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 Presents with what he calls a gallbladder attack since he woke up at 1:00 a.m. in the morning prior to admission with a sharp and burning sensation in his right upper quadrant and episodes of vomiting and nausea. He reports he had events like this years ago and was treated conservatively. Upon presentation to [place] [facility] a CT abdomen pelvis without contrast demonstrated probable diffuse gallbladder sludge and a right upper quadrant ultrasound was positive for Alex sign. Again Alex sign positive on physical examination. He also presented with elevated bilirubin at 2.1 AST 194 ALT 129 alkaline phosphatase 175 a negative troponin. He was admitted for MRCP and further evaluation by GI and General excel specialist. Admitted on 07/16 While his bilirubin has elevated to 6.1 his pain has been very well controlled and on 07/17 he no longer requires pain medications and does not have nausea or vomiting. An MRCP demonstrating distended gallbladder with gallbladder wall thickening consistent with acute cholecystitis and liver masses measuring up to 15 mm consistent with metastatic disease. He has been evaluated by GI specialists and ERCP is not recommended. Timing of cholecystectomy deferred to General surgery. 07/18 ? Acute cholecystitis CT scan showed cholecystitis that was confirmed by MRCP, no choledocholithiasis with normal bile duct, also known liver mets. c/w abx , no significant abdomen pain 418:s/p laparoscopic cholecystectomy D1, no complications, patient tolerated diet well elevated liver enzymes liver enzymes improving, patient may pass stone MRCP suggest liver masses Liver masses, measuring up to 15 mm, consistent with metastatic disease. elevated liver enzymes is also likely related to the liver cancer patient ready to be discharged Subjective Date/time seen: 07/20/23 08:16 Interval history: status post laparoscopic cholecystectomy D1, patient is afebrile, blood pressure stable, no O2 desaturation on room air. Patient denies abdomen pain, nausea vomiting diarrhea. Patient tolerated diet well. Exam Narrative: GENERAL: Pleasant, in no acute distress. Well-nourished. - EYES: EOMI. Anicteric. - HENT: Moist mucous membranes. - LUNGS: Clear to auscultation bilaterally, no wheezing, rhonchi, or rales. - CARDIOVASCULAR: Regular rate and rhythm. No murmur. No JVD. - ABDOMEN: Soft, non-tender and non-distended. No palpable masses. Surgical wound is dry and clean - EXTREMITIES: No edema. Peripheral pulses 2+. Non-tender. - NEUROLOGIC: No focal neurological deficits. CN II-XII grossly intact. - PSYCHIATRIC: Awake, Alert and oriented x 3. Appropriate mood and affect. - SKIN: No rashes or lesions. Warm. - LYMPH: No cervical lymphadenopathy. Object
--- NOTE | 2023-07-20 08:34 | WPDANESPN ---
Anes - Prog Note Post-Op Date/Time: 07/20/23 08:34 Cardiovascular status: normal Respiratory status: normal Airway patency: baseline Mental status: baseline Post-Op hydration status: normal Vital Signs: Last Vital Signs Temp 36.6 C 07/20/23 05:00 Pulse 73 07/20/23 05:00 Resp 20 07/20/23 05:00 BP 149/93 H 07/20/23 05:00 Pulse Ox 97 07/20/23 05:00 O2 Del Method Room Air 07/19/23 20:52 O2 Flow Rate 8 07/19/23 17:15 Pain Score (VAS): Patient asleep. No nonverbal signs of pain present at this time. I/O: Intake & Output 07/19/23 07/20/23 07/20/23 23:59 07:59 15:59 Intake Total 320 125 Output Total 300 Balance 20 125 Laboratory Tests 07/19/23 05:31 07/19/23 05:31 Post-procedural complaints: none Patient Feedback: Patient satisfied with anesthetic care.
[2023-07-20 09:00] VITALS: BP 146/93; PULSE 72; RESP 20; TEMP 36.8; O2SAT 96
[2023-07-20 09:03] LABS: Basophils Percent Auto 0.3 % (0.2-1.2); Eosinophils Percent Auto 0.2 % (0-4.4); Hematocrit 40.4 % (42.0-52.0); Hemoglobin 13.3 g/dL (14.0-18.0); Immature Granulocyte Absolute 0.03 K/mm3 (0.00-0.031); Immature Granulocyte Percent A 0.3 % (0-0.5); Lymphocytes Absolute Auto 1.33 K/mm3 (0.9-3.2); Lymphocytes Percent Auto 14.9 % (18.3-44.2); Mean Corpuscular HGB Conc 32.9 g/dl (32-36); Mean Corpuscular Hemoglobin 30.4 pg (26-34); Mean Corpuscular Volume 92.2 fl (80-100); Mean Platelet Volume 9.6 fl (7.4-10.4); Monocytes Absolute Auto 0.9 K/mm3 (0.1-0.6); Monocytes Percent Auto 10.2 % (2.6-8.5); Neutrophils Absolute Auto 6.6 K/mm3 (1.3-6.7); Neutrophils Percent Auto 74.1 % (45.5-73.1); Platelet Count Result 197 k/mm3 (150-375); Red Blood Count 4.38 M/mm3 (4.6-6.20); Red Cell Distribution Width 13.2 % (11.5-14.5); White Blood Count 8.9 K/mm3 (4.5-10.0)
[2023-07-20] MEDS: DICYCLOMINE HCL 10 MG CAPSULE PO (09:12)
[2023-07-20] MEDS: HYDROcodone/acetaminophen (*CRX) 5-325 MG TABLET 1 TAB PO (09:12)
[2023-07-20 09:17] LABS: Alanine Aminotransferase 410 U/L (6-50); Albumin Level 3.8 g/dL (3.5-5.1); Alkaline Phosphatase 248 U/L (38-126); Anion Gap 3 mmol/L (4-12); Aspartate Amino Transferase 217 U/L (17-59); Bilirubin,Total 2.9 mg/dL (0.2-1.3); Blood Urea Nitrogen 9 mg/dL (9-20); Calcium 8.9 mg/dL (8.4-10.2); Carbon Dioxide 30 mmol/L (22-30); Chloride 106 mmol/L (98-107); Estimated CRCL calculation 82 ml/min; Estimated Glomerular Filt Rate > 60; Glucose 118 mg/dL (65-110); Potassium 3.8 mmol/L (3.4-5.0); Sodium 139 mmol/L (137-145)
[2023-07-20 11:51] VITALS: BP 155/85; PULSE 67; RESP 20; TEMP 37; O2SAT 94
--- NOTE | 2023-07-20 13:58 | PM.PNGS ---
Progress Note: A&P Assessment and Plan (1) Acute on chronic cholecystitis concurrent with and due to calculus of gallbladder and bile duct: Code(s): K80.66 - Calculus of gallbladder and bile duct with acute and chronic cholecystitis without obstruction Status: Acute Assessment and Plan: POD1 laparoscopic cholecystectomy. Doing well. Okay to d/c from surgical standpoint. F/u with Dr. Stapleton in 2 weeks. Low fat diet x 2 weeks. (2) Metastatic carcinoid tumor: Code(s): C7B.00 - Secondary carcinoid tumors, unspecified site Status: Acute Assessment and Plan: Continue with f/u with Oncology at [facility] in August Plan I have discussed the patient's case and plan of care with Dr. Stapleton. Subjective Subjective Date/Time Seen: 07/20/23 13:58 Post Op day: 1 (laparoscopic cholecystectomy) Patient reports: no new complaints, feels better, tolerating a regular diet, voiding w/o difficulty, flatus and bowel movement Exam Const: General: comfortable and no acute distress GI: Inspection: non-distended and incision (incisions dry and intact) GI Palp: Yes Soft to palpation, Yes Tenderness to palpation present (GI) (incisional) and No Guarding due to palpation present (GI) Auscultation: normal bowel sounds Neuro: General: moves all extremities and no focal motor deficits Extrem: General: no edema Psych: Mental Status: mental status grossly normal Insight: Good insight present (Psych) Objective Data Vital Signs Vital Signs: Vital Signs - 24 hr 07/19/23 14:25 07/19/23 17:01 07/19/23 17:15 Temperature 98.9 F 98.8 F Pulse Rate 61 99 94 Respiratory Rate 16 18 16 Blood Pressure 153/89 H 142/83 H 160/89 H Pulse Oximetry 96 100 100 Oxygen Delivery Room Air Simple Face Mask Simple Face Mask Oxygen Flow Rate 8 8 07/19/23 17:30 07/19/23 17:45 07/19/23 18:00 Temperature Pulse Rate 91 86 83 Respiratory Rate 14 15 16 Blood Pressure 149/95 H 146/100 H 146/91 H Pulse Oximetry 96 95 95 Oxygen Delivery Room Air Room Air Room Air Oxygen Flow Rate 07/19/23 20:43 07/19/23 19:05 07/19/23 20:05 Temperature 98.6 F 98.6 F 98.8 F Pulse Rate 84 84 84 Respiratory Rate 20 20 20 Blood Pressure 158/85 H 151/85 H 151/87 H Pulse Oximetry 93 95 95 Oxygen Delivery Oxygen Flow Rate 07/20/23 00:42 07/19/23 20:52 07/20/23 05:00 Temperature 98.3 F 97.9 F Pulse Rate 66 73 Respiratory Rate 18 20 Blood Pressure 128/79 149/93 H Pulse Oximetry 94 95 97 Oxygen Delivery Room Air Oxygen Flow Rate 07/20/23 09:00 07/20/23 08:00 07/20/23 11:51 Temperature 98.3 F 98.6 F Pulse Rate 72 67 Respiratory Rate 20 20 Blood Pressure 146/93 H 155/85 H Pulse Oximetry 96 94 Oxygen Delivery Room Air Oxygen Flow Rate Intake/Output Intake/Output: Intake & Output 07/17/23 07/18/23 07/19/23 07/20/23 23:59 23:59 23:59 23:59 Intake Total 2430 1828.3 365 Output Total 700 300 Balance 1730 1528.3 365 Meds/Results Medications: Active Medications Generic Name Dose Route Start Last Admin Trade Name Freq PRN Reason Stop Dose Admin Hydrocodone Bitart/Acetaminophen 1 tab 07/19/23 18:11 07/20/23 09:12 Hydrocodone/Acetaminophen (*Crx) 5-325 Mg Tablet PO 1 tab Q4H PRN Administration Pain Rated 4-6 Dicyclomine HCl 10 mg 07/20/23 09:00 07/20/23 09:12 Dicyclomine Hcl 10 Mg Capsule PO 10 mg DAILY GUILLE Administration Sodium Chloride 1,000 mls @ 100 mls/hr 07/17/23 23:05 07/19/23 12:14 Sodium Chloride 0.45% IV CONT 100 mls/hr .Q10H GUILLE Administration Morphine Sulfate 2 mg 07/19/23 09:37 07/19/23 12:10 Morphine Sulfate (*Crx) 2 Mg/Ml Inj IV PUSH 2 mg Q2H PRN Administration Pain Rated 7-10 Naloxone HCl 0.1 mg 07/17/23 23:01 Naloxone Hcl 0.4 Mg/Ml Vial IV PUSH Q2M PRN Opiate Reversal Ondansetron HCl 4 mg 07/17/23 23:01 07/19/23 08:03 Ondansetron Inj 4 Mg/2 Ml Vial IV PUSH 4 mg Q6H PRN Administration N
--- NOTE | 2023-07-20 14:05 | PM.DS ---
DS: Admitting Diagnosis Discharge Date 07/20/23 Admitting Diagnosis (1) Nausea and vomiting in adult: ?Code(s): R11.2 - Nausea with vomiting, unspecified ?Status:?Acute (2) RUQ pain: ?Code(s): R10.11 - Right upper quadrant pain ?Status:?Acute (3) Elevated liver enzymes: ?Code(s): R74.8 - Abnormal levels of other serum enzymes ?Status:?Acute (4) Biliary colic: ?Code(s): K80.50 - Calculus of bile duct without cholangitis or cholecystitis without obstruction ?Status:?Acute (5) Biliary sludge: ?Code(s): K83.8 - Other specified diseases of biliary tract ?Status:?Acute (6) Metastatic carcinoid tumor: ?Code(s): C7B.00 - Secondary carcinoid tumors, unspecified site ?Status:?Acute (7) Acute on chronic cholecystitis concurrent with and due to calculus of gallbladder and bile duct: ?Code(s): K80.66 - Calculus of gallbladder and bile duct with acute and chronic cholecystitis without obstruction ?Status:?Acute DS: Discharge Diagnosis Discharge Diagnosis (1) Nausea and vomiting in adult: Code(s): R11.2 - Nausea with vomiting, unspecified Status: Acute (2) RUQ pain: Code(s): R10.11 - Right upper quadrant pain Status: Acute (3) Elevated liver enzymes: Code(s): R74.8 - Abnormal levels of other serum enzymes Status: Acute (4) Biliary colic: Code(s): K80.50 - Calculus of bile duct without cholangitis or cholecystitis without obstruction Status: Acute (5) Biliary sludge: Code(s): K83.8 - Other specified diseases of biliary tract Status: Acute (6) Metastatic carcinoid tumor: Code(s): C7B.00 - Secondary carcinoid tumors, unspecified site Status: Acute (7) Acute on chronic cholecystitis concurrent with and due to calculus of gallbladder and bile duct: Code(s): K80.66 - Calculus of gallbladder and bile duct with acute and chronic cholecystitis without obstruction Status: Acute DS: Summary Hospital Course Hospital Course: Mr. 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 Presents with what he calls a gallbladder attack since he woke up at 1:00 a.m. in the morning prior to admission with a sharp and burning sensation in his right upper quadrant and episodes of vomiting and nausea. He reports he had events like this years ago and was treated conservatively. Upon presentation to [facility] a CT abdomen pelvis without contrast demonstrated probable diffuse gallbladder sludge and a right upper quadrant ultrasound was positive for Alex sign. Again Alex sign positive on physical examination. He also presented with elevated bilirubin at 2.1 AST 194 ALT 129 alkaline phosphatase 175 a negative troponin. He was admitted for MRCP and further evaluation by GI and General mortgage servicing specialist. Admitted on 07/16 While his bilirubin has elevated to 6.1 his pain has been very well controlled and on 07/17 he no longer requires pain medications and does not have nausea or vomiting. An MRCP demonstrating distended gallbladder with gallbladder wall thickening consistent with acute cholecystitis and liver masses measuring up to 15 mm consistent with metastatic disease. He has been evaluated by GI specialists and ERCP is not recommended. Timing of cholecystectomy deferred to General surgery. 07/18 ? Acute cholecystitis CT scan showed cholecystitis that was confirmed by MRCP, no choledocholithiasis with normal bile duct, also known liver mets. c/w abx , no significant abdomen pain :s/p laparoscopic cholecystectomy D1, no complications, patient tolerated diet well general surgeon approved discharge elevated liver enzymes liver enzymes improving, patient may pass stone MRCP suggest liver masses Liver masses, measuring up
--- NOTE | 2023-07-25 13:03 | P.DS_ITS ---
DS: Admitting Diagnosis Discharge Date 07/20/23 DS: Summary Time Spent with Patient Time attestation: Total time spent providing and/or coordinating discharge services: DS: Data Data Completed and Pending Completed studies during hospitalization: Pending at discharge 07/19/23 15:52 Surgical [PTH] Routine Discharge Plan Discharge Attending physician on discharge: Dariana Weaver Consulting providers: Cheryl Montano; Sumit Johns; Dagoberto Benitez; Todd Major; Donna Naranjo; Satinder Felix V.; Mark Rodriguez; Desirae Welsh Discharging Clinician: Dariana Weaver Anticipated Discharge Date/Time: 07/20/23 14:08 Patient Disposition: Home, Self-Care Activity: may shower and other - see discharge instructions Diet: low fat Discharge Instructions: Incisional Instructions: .May shower in am. .However, Do NOT submerge yourself into water (i.e., hot tubs, swimming pools, tub baths) for 2 weeks. .Let the soap and water flow freely over your incision sites. .Do not scrub at or pick at glue sites, the glue will fall off naturally. DISCHARGE INSTRUCTION SHEET FOR HERNIA, GALLBLADDER AND APPENDIX SURGERIES DR. MONTANO 1. May shower in 24 hours, no soaking in bath x 2weeks. 2. Call office for: * Wound increasingly painful or bleeding * Vomiting * Fever of greater than 101 degrees 3. If no bowel movement for three days, take 1 oz. (30 ml) Milk of Magnesia or MiraLax 17g 1 to 2 times daily. 4. No heavy lifting > 10-15 pounds x 2 weeks for laparoscopic cholecystectomy. 5. No driving for 3 days or while taking narcotic pain medications. 6. Ice to surgical site for 48 hours (30 min on, then 30 min off). 7. Up walking 10-30 minutes three times per day. 8. Resume previous home medications. 9. Follow-up 10-14 days in office for wound check or as previously scheduled. ([phone]) 10. Oral pain medications prescription to be sent to pharmacy. Take Tylenol 500mg every 6 hours and Ibuprofen 600mg every 6 hours for the first 2 days, then as needed. 11. NUTRITION: Start out by drinking fluids and increase your diet as tolerated. If you experience nausea, try dry toast, crackers, and 7-UP. If nausea or vomiting persists, contact your surgeon?s office. 12. Gallbladders-Low Fat Diet for 2 weeks Patient Instructions: Antibiotic Form, Low Fat Diet (GEN) Stand Alone Forms: General Discharge Information, Work/School Release IP Follow-up/Referrals: Cheryl Montano MD [Physician] - 2 Weeks Discharge Medications: New hydrocodone-acetaminophen 5-325 mg Tablet 1 tablet PO Q4-6H PRN (Reason: Pain Rated 4-6) Qty: 16 0RF Continued sertraline 100 mg tablet 100 mg POST-TRANSFUSION dicyclomine 10 mg capsule 10 mg PO DAILY Date of admission: 07/19/23 10:33 Primary Care Provider: PHYSICIAN NOT ON STAFF,NONSTAFF Admitting Provider: Bessy Velasco Attending physician on admission: Dariana Weaver Condition: Stable
== END 2023-07-20 15:10 | disposition home or self-care (01) | DRG 418 ==
LOC: ANHED 15:59 → ANH2MED 16:44
PROVIDERS: Surgery; Admitting Provider General Practice; Emergency Provider Student in an Organized Health Care Education/Training Program; Visit Provider Hospitalist
PROC: 0FT44ZZ Resection of Gallbladder, Percutaneous Endoscopic Approach (ICD-10-PCS; CPT 47562; principal; 2023-07-19 14:30)
DX: K81.0 Acute cholecystitis (principal); C78.00 Secondary malignant neoplasm of unspecified lung; C78.7 Secondary malignant neoplasm of liver and intrahepatic bile duct; C7A.012 Malignant carcinoid tumor of the ileum; K66.0 Peritoneal adhesions (postprocedural) (postinfection); K82.8 Other specified diseases of gallbladder; Z90.89 Acquired absence of other organs; Z90.49 Acquired absence of other specified parts of digestive tract
CPT/HCPCS: 36415; 74176; 74183; 76376; 76705; 80053; 81003; 83605; 83690; 83735; 84484; 85025; 85610; 85730; 88304; 93005; 96365; 96374; 96375; 96376; 99285; A9270; A9577; G0378; J1100; J1170; J2250; J2270; J2405; J2543; J2704; J3010; J7030; J7120; J7512